=== PATIENT | female | born 1940 | race Caucasian/White ===

== ENCOUNTER 2017-06-15 12:42 | Day surgery (SDC) | payer OTHER, MEDICARE ==
[~2017-06-15] VITALS: Ht 154.9 cm; Wt 83.6 kg
[~2017-06-15 12:42] MED LIST: AMBIEN10 MG PO; COUMADIN2.5 MG PO; DIOVAN HCT 31 TABLE1 PO; FERROUS SULFAT325 MG PO; HYDROCODON-ACE1 EAC7 PO; MELOXICAM15 MG PO; MEVACOR20 MG PO; MOTRIN600 MG PO; NEURONTIN300 MG PO; NORCO 5/3251 TABLET PO; TOPROL XL100 MG PO; VITAMIN D400 UNIT PO
== END 2017-06-15 14:55 | disposition home or self-care (01) ==
LOC: PAIN 12:42 → SDC 14:30 → PAIN 14:30
PROC: 015B3ZZ Destruction of Lumbar Nerve, Percutaneous Approach (ICD-10-PCS; principal; 2017-06-15)
DX: M47.816 Spondylosis without myelopathy or radiculopathy, lumbar region (principal); G89.29 Other chronic pain; M53.3 Sacrococcygeal disorders, not elsewhere classified; F41.9 Anxiety disorder, unspecified; I10 Essential (primary) hypertension; E78.5 Hyperlipidemia, unspecified
CPT/HCPCS: J1030; J3010; S0020

== ENCOUNTER 2018-05-31 08:33 | Day surgery (SDC) | payer OTHER, MEDICARE ==
[~2018-05-31] VITALS: Ht 154.9 cm; Wt 58.1 kg
[~2018-05-31 08:33] MED LIST changes: +AMOX TR-K CLV1 EAC4 PO; +FLONASE ALLERG9.9 ML BOTH NARES; +LORCET 5-325 M1 EACH PO; +POTASSIUM-9999 MG PO; +VITAMIN D31000 UNIT PO; -VITAMIN D400 UNIT PO
== END 2018-05-31 10:47 | disposition home or self-care (01) ==
LOC: PAIN 08:33 → SDC 09:15 → PAIN 09:15
DX: M54.16 Radiculopathy, lumbar region (principal); M47.816 Spondylosis without myelopathy or radiculopathy, lumbar region; M79.1 Myalgia; M53.3 Sacrococcygeal disorders, not elsewhere classified; G62.9 Polyneuropathy, unspecified; Z79.891 Long term (current) use of opiate analgesic
CPT/HCPCS: J1100